=== PATIENT | male | born 1940 | race Caucasian/White ===

== ENCOUNTER 2017-03-12 10:30 | Outpatient (RCR) | payer OTHER, MEDICARE, SELFPAY ==
--- NOTE | 2017-02-11 14:13 | HP.PTEVAL_ITS ---
Patient's Visit Information PHYLLIS CABRERA JR is a 76 year old M referred to Physical Therapy by Tae Braxton DO with a diagnosis of R hip OA s/p JEANNETTE 02/01/17. Date of Evaluation: 02/11/17 Physical Therapist: John Slaughter DPT, OC - Visit Plan Frequency: 3x /Week Duration: 4-6 Weeks Plan: 3x/week for 4-6 for. 1. review abd/ext rot precaution with transfers, work on transfer to /fro sit, stand. 2. R hip AROM and strength s/p JEANNETTE anterior approach. 3. gait and stair training as tolerated with dynamic balance.\4. ice as needed. - Subjective Subjective: Had R JEANNETTE 10 days ago after years of bone on bone and pain. Was in rehab until this morning. Will go home today where luz maria lives with his in two story house with steps with railing. Formerly used cane on steps. Needed cane all the time prior to surgery. Has fairly constant pain at 5/10 in upper R hip. He is not losing sleep yet. Basic aDLs are OK, will help him get in and he will do it himself, then she will clean up. Will s pend time sitting at home, will be with him. Does not work. wants to return to being able to do stuff around the house for . Wants to drive again. - Pain R hip Pain Intensity (Out of 10): 5 Pain Intensity Range: 4, 6 - Objective Walks with whw alker slowly and R antalgia decreased L stance time. Transfer slowly and needs UE to exit and enter chair. R incision is anterior on the hip and dressed appropriately, no signs of redness , heat or swelling. Moderate scar tissue palpable. Stands without walker hesitantly but I even with monor perturbations, ec goes BW quickly without correction. Unable to relate precaution prior to my education today. Pt is very slow to move overall and has difficult time with heel slide R. PROM R Knee is good. R ankle and B ankle AROM and strength WFL and 4/5. R hip strength is 3/5, L hip is 4/5. Pt is hesitant to move R. Needs VC to take larger steps and keep walker moving forward. Steps are two railing and using L only, needs VC to not use R. Transfer into bed L sidelying needing VC to go this way but I. Supine to sit is Mod A. HS and gastroc mod tight. - homans R. Overall, very slow with movements taking nearly 15 minutes to walk back 150 feet. - Goals Goal 1:: Walk with cane in community I and safely Goal Time Frame: 4-6 Weeks Goal 2:: Steps reciprocally with one rail Goal Time Frame: 4-6 Weeks Goal 3:: Pt pain down to 1/10 at worst Goal Time Frame: 2-4 Weeks Goal 4:: Patient to do bed transfers and chair transfers I and in a timely fashion Goal Time Frame: 4-6 Weeks Goal 5:: I apporp HEP to minimize future problems. - Rehabilitation Potential Physical Therapy Diagnosis: R hip OA s/p JEANNETTE anterior approach. Rehabilitation Potential: Fair - Anticipated Interventions Patient/Client Instruction: Educate patient on: Condition, Plan of Care, Risk Factors For the Purpose of:: To decrease pain, To increase ROM, To improve nutrient delivery to tissue, To improve ability of physical actions for home/community/ work/leisure Therapeutic Exercise to Include: Strength training, Flexibilty training, Gait and locomotor training, Active ROM For the Purpose of:: To decrease pain, To decrease swelling/inflammation, To increase ROM, To improve nutrient delivery to tissue, To decrease level of supervision to perform tasks, To improve ability of physical actions for home/ community/work/leisure, To improve gait and locomotor functions Manual Therapy Techniques to Include: Passive ROM For the Purpose of:: To increase ROM Cryotherapy (ice pack, ice massage): Yes For the Purpose of:: To decrease pain, To decrease swelling/inflammation Thank you for the opportunity to evaluate your patient. For Medicare and Medicare HMO plans, please review the plan of care and approve it. It will need to be FAXED BACK to us at [phone] for Medicare purposes. Please let me know if there are questions or concerns regarding this plan of care. Physician Signature: Date:
--- NOTE | 2017-05-15 09:24 | HP.PTDCNRP_ITS ---
HP - Discharge Summary (1) - Patient Information PHYLLIS CABRERA Jr. was seen in my office for initial evaluation on 02/11/17. The following Plan of Care was established for this patient: Initial Frequency: 3x /Week Initial Duration: 4-6 Weeks - Anticipated Interventions Patient/Client Instruction: Educate patient on: Condition, Plan of Care, Risk Factors For the Purpose of:: To decrease pain, To increase ROM, To improve nutrient delivery to tissue, To improve ability of physical actions for home/community/ work/leisure Therapeutic Exercise to Include: Strength training, Flexibilty training, Gait and locomotor training, Active ROM For the Purpose of:: To decrease pain, To decrease swelling/inflammation, To increase ROM, To improve nutrient delivery to tissue, To decrease level of supervision to perform tasks, To improve ability of physical actions for home/ community/work/leisure, To improve gait and locomotor functions Manual Therapy Techniques to Include: Passive ROM For the Purpose of:: To increase ROM Cryotherapy (ice pack, ice massage): Yes For the Purpose of:: To decrease pain, To decrease swelling/inflammation This patient was last seen in our office 03/12/18. Pertinent comments regarding their Physical therapy will appear below: Pt seen 12 visits of plan of care and treated with pain control, ROM and strength. Pt was more painful than appropriate during most of his time and doctor was informed. Patient did not show up for his last scheduled recheck on 03/26/17. At this point, I will discontinue due to nonattendance. At this point I will be discontinuing this patient from physical therapy. I would be happy to see this patient again in the future if found appropriate by the physician. Thank you! John Slaughter, DPT, OC
== END 2017-03-12 19:00 | disposition home or self-care (01) ==
LOC: PT 10:30
PROVIDERS: Visit Provider Orthopaedic Surgery
DX: M16.11 Unilateral primary osteoarthritis, right hip (principal); M21.751 Unequal limb length (acquired), right femur; M25.551 Pain in right hip
CPT/HCPCS: 97110; 97116; 97140; 97162; G8978; G8979

== ENCOUNTER 2019-05-08 15:16 | Emergency (ER) | payer MEDICARE, OTHER, SELFPAY ==
[2019-05-08 15:17] VITALS: BP 151/85; PULSE 58; RESP 18; TEMP 36.1; O2SAT 98; BMI 31.1
--- NOTE | 2019-05-08 15:30 | EKG12_ITS ---
Test Reason : ILLNESS Blood Pressure : / mmHG Vent. Rate : 066 BPM Atrial Rate : 066 BPM P-R Int : 216 ms QRS Dur : 100 ms QT Int : 432 ms P-R-T Axes : 050 000 085 degrees QTc Int : 452 ms Sinus rhythm with 1st degree A-V block Inferior IA, age undetermined, cannot be excluded Confirmed by GARRETT ZHANG, DOC ([id number]), tape editor RICH SANTOS ([id number]) on 05/12/2019 8:51:07 AM Referred By: DOC Confirmed By:DOC TUCKER MD
[2019-05-08 15:32] VITALS: BP 144/87; PULSE 67; RESP 19; O2SAT 95
--- NOTE | 2019-05-08 15:32 | ED.VIS.GEN ---
History of Present Illness Chief Complaint: Nausea/Vomiting Informant: Patient, Family Narrative: Brought in by secondary to generalized weakness and nausea and vomiting. She states he has been more fatigued than normal the past week with mild cough and subjective fever. He developed nausea and vomiting today. He said no diarrhea. He denies any pain at this time. Patient's states that when she try to get him up to walk today his legs are very weak and wanted to buckle on him. - Past Medical History (1) H/O aortic valve replacement Status: Chronic (2) High cholesterol Status: Chronic (3) CVA (cerebral vascular accident) Status: Chronic (4) Vascular dementia Status: Chronic Past Medical History - Allergies and Home Meds Allergies/Adverse Reactions: Allergies Sulfa (Sulfonamide Antibiotics) Allergy (Verified 05/08/19 15:17) Other Primary Care Physician: [facility] [Primary Care Provider] - 3-5 Days if not improving Prior records reviewed: Yes Surgical History: - - Back sx Lives: Spouse/ Significant Other Review of Systems General: Reports: Fever, Subjective Eyes: Denies: Visual changes - bilaterally ENT: Denies: Bilateral ear pain Cardiovascular: Denies: Chest pain, Palpitations Respiratory: Reports: Cough. Denies: Dyspnea Gastrointestinal: Reports: Nausea, Vomiting. Denies: Abdominal pain, Diarrhea Genitourinary: Denies: Dysuria Musculoskeletal: Reports: Myalgias. Denies: Extremity Pain Skin: Denies: Rash, Wounds Neurological: Reports: Weakness. Denies: Headache Allergy: Denies: Uticaria Physical Exam Vital Signs/Narrative: Vital Signs Temp Pulse Resp BP Pulse Ox 05/08/19 15:17 97 F L 58 L 18 151/85 H 98 Inital Vital Signs reviewed: Yes General: Well nourished, Well developed Head: Normocephalic ENT: Moist mucous membranes Neck: Supple Cardiovascular: Regular rate, Regular rhythm Respiratory: No distress, CTA bilaterally Abdomen: Soft, Nontender, Hypoactive bowel sounds Skin: Normal color Neurological: Alert, Oriented x3 Psychological: Normal affect Diagnostic/Tx/Re-eval Impressions Chest X-Ray 05/08/19 15:45 IMPRESSION: Minimal left basilar scar versus linear subsegmental atelectasis Mild left ventricular prominence prior cardiothoracic surgery Air collection projecting over lower thoracic spine likely hiatal hernia, extraluminal air or cavitary lesion unlikely. Free intraperitoneal air also likely. This can be further evaluated with CT. Electronically Signed: Tee Jimenez, at 16:22 EST Tel , Service support , 05/08/19 15:45 Chest 1 View (Portable) [RAD] Stat 05/08/19 15:35 Mucosa - Nose Influenza Types A,B Direct FA ([facility]) - Final Influenzae B Laboratory Results 05/08/19 05/08/19 05/08/19 15:25 15:25 16:25 WBC 5.9 RBC 4.67 Hgb 14.1 Hct 43.0 MCV 92.1 MCH 30.2 MCHC 32.8 RDW Std Deviation 47.9 H RDW Coeff of Maria Esther 14.1 Plt Count 180 MPV 8.9 Immature Gran % (Auto) 0.300 Neut % (Auto) 74.0 H Lymph % (Auto) 17.0 L [place] % (Auto) 6.5 Eos % (Auto) 1.7 Baso % (Auto) 0.5 Absolute Neuts (auto) 4.3 Absolute Lymphs (auto) 1.00 Nucleated RBC % 0 Sodium 137 Potassium 4.0 Chloride 103 Carbon Dioxide 29.0 Anion Gap 5 BUN 21 H Creatinine 1.00 Estim Creat Clear Calc 58.76 Est GFR (MDRD) Af Amer 94 Est GFR (MDRD) Non-Af 77 BUN/Creatinine Ratio 21.1 H Glucose 133 H Calcium 8.9 Total Bilirubin 0.50 Direct Bilirubin 0.16 AST 31 ALT 34 Alkaline Phosphatase 79 Total Protein 7.6 Albumin 3.4 Globulin 4.2 Lipase 99 Urine Color Yellow Urine Clarity Clear Urine pH 5.0 Ur Specific [place] 1.020 Urine Protein Negative Urine Glucose (UA) Normal Urine Ketones Negative Urine Occult Blood Negative Urine Nitrite Negative Urine Bilirubin Negative Urine Urobilinogen Normal Ur Leukocyte Esterase Negative Urine RBC 0 SEEN Urine WBC 0 SEEN Ur Squamous Epith Cells 0 SEEN Urine Bacteria 0 SEEN Urine Mucus 0 SEEN - EKG Initial EKG Interpretation: Sinus Rhythm - Sinus at 66 with first-degree AV block. No acute ischemia. - Medical Decision Making Patient was given IV fluids and Zofran here. On repeat evaluation he does report feeling a little improved. Nursing staff that the patient up and ambulated him around the room. feels that he is back to his baseline. Patient has had symptoms for the past 5 or 6 days and is outside the window for Tamiflu. Prescription for Zofran will be sent to the local pharmacy. Return instructions are provided. ED Disposition - Plan for ED Patient: Disposition: Home or Assisted Living Diagnosis: Influenza Instructions: INFLUENZA (Adult) Prescriptions: Ondansetron [Zofran Odt] 4 mg PO Q8H PRN PRN #10 tablet PRN Reason: Nausea [facility] [[facility] - 3-5 Days if not improving
[2019-05-08] MEDS: Ondansetron 4 MG/2 ML Vial IV (15:39)
[2019-05-08] MEDS: 0.9% Normal Saline 1,000 ML 150 ML IV (15:45)
--- NOTE | 2019-05-08 15:45 | RAD_ITS ---
STUDY: X-RAY CHEST REASON FOR EXAM: Male, 78 years old. WEAKNESS AND CONFUSION TECHNIQUE: Portable chest COMPARISON: None. FINDINGS: There is mild linear left basilar pulmonary opacity. There is no demonstrated pleural abnormality. There is air collection projecting over the lower thoracic spine. There are sternal wires. Normal size heart. Normal mediastinum and komal. Normal visualized pulmonary arteries. Normal visualized aortic arch and descending thoracic aorta. There are degenerative changes of the left shoulder. Degenerative changes of the thoracic spine. There is no demonstrated abnormality of the visualized soft tissue structures of the upper abdomen. RAD/Chest 1 View (Portable) IMPRESSION: Minimal left basilar scar versus linear subsegmental atelectasis Mild left ventricular prominence prior cardiothoracic surgery Air collection projecting over lower thoracic spine likely hiatal hernia, extraluminal air or cavitary lesion unlikely. Free intraperitoneal air also likely. This can be further evaluated with CT. Electronically Signed: Tee Jimenez, at 16:22 EST Tel , Service support ,
[2019-05-08 15:53] LABS: Absolute Neutrophil Count 4.3 X10^3/uL (2.0-7.7); Basophil# 0.03 X10^3/uL; Basophil% 0.5 % (0-1); Eosinophils% 1.7 % (0-5); Hemoglobin 14.1 g/dL (13.0-16.5); Mean Corp Hgb Conc 32.8 g/dL (32-36); Mean Corpuscular Hgb 30.2 pg (27.0-32.0); Mean Corpuscular Volume 92.1 fL (80-94); Mean Platelet Vol. 8.9 fl (6.2-12.0); Monocyte# 0.38 X10^3/uL; Monocyte% 6.5 % (0-10); NRBC Flagged by Analyzer 0 % (0-5); Neutrophil # 4.34 X10^3/uL (2.7-7.7); Platelet Count 180 K/mm3 (150-450); RBC Distribution Width CV 14.1 % (11.6-14.6); RBC Distribution Width SD 47.9 fl (35.1-43.9); Red Blood Count 4.67 M/mm3 (4.6-6.2); White Blood Count 5.9 K/mm3 (4.4-11.0)
[2019-05-08 16:07] LABS: AST(SGOT) 31 U/L (15-37); Alanine Aminotransfer ALT/SGPT 34 U/L (16-61); Albumin, Serum 3.4 g/dL (3.2-5.0); Alkaline Phosphatase 79 U/L (45-117); Anion Gap 5 (5-15); BUN 21 mg/dL (7-18); BUN/Creat Ratio 21.1 RATIO (10-20); Bilirubin, Direct 0.16 mg/dL (0.00-0.30); Calcium,Total 8.9 mg/dL (8.5-10.1); Chloride 103 mmol/L (98-107); EST Glomerular Filtration Rate 77 mL/min (>60); Est Glom Filt Rate - Afr Amer 94 mL/min (>60); Estimated Creatinine Clearance 58.76 ml/min; Globulin 4.2 g/dL (2.2-4.2); Glucose 133 mg/dL (74-106); Lipase 99 U/L (73-393); Protein, Total 7.6 g/dL (6.4-8.2); Sodium Level 137 mmol/L (136-145)
[2019-05-08 16:33] LABS: Bacteria 0 SEEN /hpf (None Seen); Mucous, Urine 0 SEEN /hpf (<or=2+); Red Blood Cells-Urine 0 SEEN /hpf (0-5); Squamous Epithelial Cells - UA 0 SEEN /hpf (0-5); White Blood Cells 0 SEEN /hpf (0-5)
[2019-05-08 16:38] LABS: Color, Urine Yellow (Yellow); Glucose, Dipstick Normal (Normal); Ketone-Dipstick Negative (Negative); Leukocyte Esterase-Dipstick Negative /ul (Negative); Nitrite-Dipstick Negative (Negative); Occult Blood-Urine Negative /ul (Negative); Protein-Dipstick Negative (Negative); Urine Bilirubin Dipstick Negative (Negative); Urine Clarity Clear (Clear); Urine Urobilinogen Normal (Normal)
[2019-05-08 17:38] VITALS: BP 145/71; PULSE 61; RESP 16; O2SAT 97
== END 2019-05-08 17:40 | disposition home or self-care (01) ==
PROVIDERS: Emergency Provider Emergency Medicine
DX: J11.1 Influenza due to unidentified influenza virus with other respiratory manifestations (principal); E78.00 Pure hypercholesterolemia, unspecified; I44.0 Atrioventricular block, first degree; Z86.73 Personal history of transient ischemic attack (TIA), and cerebral infarction without residual deficits; Z88.2 Allergy status to sulfonamides; Z95.2 Presence of prosthetic heart valve
CPT/HCPCS: 71045; 80048; 80076; 81001; 83690; 85025; 87804; 93005; 96361; 96374; 99284; J7030; A4216; J2405